=== PATIENT | female | born 1995 | race African-American/Black ===

== ENCOUNTER 2017-06-13 18:50 | Emergency (ER) | payer SELFPAY ==
[~2017-06-13] VITALS: Ht 152.4 cm; Wt 61.2 kg
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
== END 2017-06-13 21:05 | disposition home or self-care (01) ==
LOC: CFTX 18:50 → CED 18:50 → CFTX 20:43
DX: S33.5XXA Sprain of ligaments of lumbar spine, initial encounter (principal); S80.12XA Contusion of left lower leg, initial encounter; S20.211A Contusion of right front wall of thorax, initial encounter; S00.81XA Abrasion of other part of head, initial encounter; S20.311A Abrasion of right front wall of thorax, initial encounter; Z23 Encounter for immunization; Z88.0 Allergy status to penicillin; V49.10XA Passenger injured in collision with unspecified motor vehicles in nontraffic accident, initial encounter; Y92.410 Unspecified street and highway as the place of occurrence of the external cause
CPT/HCPCS: 71010; 72100; 84703; 90471; 90715; 99284